=== PATIENT | male | born 1990 | race African-American/Black ===

== ENCOUNTER 2020-04-20 19:01 | Emergency (ER) | payer MEDICAID ==
[~2020-04-20] VITALS: Ht 185.4 cm; Wt 107.0 kg
[2020-04-20] MEDS ORDERED: BACITRACIN ZINC OINT UDPKT TOP ONE (20:15)
[2020-04-20] MEDS ORDERED: LIDOCAINE HCL/PF 1% 10 MG/ML 5ML VIAL IJ ONE (20:15)
[2020-04-20] MEDS ORDERED: IBUPROFEN 600MG TABLET PO ONE (20:15)
[2020-04-20 21:25] VITALS: BP 124/64
== END 2020-04-20 21:25 | disposition home or self-care (01) ==
LOC: ER 19:01
DX: S61.215A Laceration without foreign body of left ring finger without damage to nail, initial encounter (principal); F12.10 Cannabis abuse, uncomplicated; W25.XXXA Contact with sharp glass, initial encounter; Y93.89 Activity, other specified; Y92.89 Other specified places as the place of occurrence of the external cause; Y99.8 Other external cause status
CPT/HCPCS: 12001; 99283; J3490

== ENCOUNTER 2020-04-22 13:51 | Emergency (ER) | payer MEDICAID ==
[~2020-04-22] VITALS: Ht 182.9 cm; Wt 100.0 kg
[2020-04-22 14:09] VITALS: BP 123/91
== END 2020-04-22 14:51 | disposition home or self-care (01) ==
LOC: ER 13:51
DX: Z48.00 Encounter for change or removal of nonsurgical wound dressing (principal)
CPT/HCPCS: 99281

== ENCOUNTER 2020-04-26 09:48 | Emergency (ER) | payer MEDICAID ==
[~2020-04-26] VITALS: Ht 185.4 cm; Wt 103.5 kg
[2020-04-26 09:57] VITALS: BP 122/68
== END 2020-04-26 10:23 | disposition home or self-care (01) ==
LOC: ER 09:48
DX: Z48.02 Encounter for removal of sutures (principal); R03.0 Elevated blood-pressure reading, without diagnosis of hypertension
CPT/HCPCS: 99281

== ENCOUNTER 2020-10-01 04:34 | Emergency (ER) | payer MEDICAID, OTHER ==
[~2020-10-01] VITALS: Ht 185.4 cm; Wt 114.0 kg
[2020-10-01 05:03] VITALS: BP 135/70
== END 2020-10-01 06:52 | disposition home or self-care (01) ==
LOC: ER 04:34
DX: L03.113 Cellulitis of right upper limb (principal); F12.10 Cannabis abuse, uncomplicated
CPT/HCPCS: 73090; 99283

== ENCOUNTER 2021-02-18 05:13 | Emergency (ER) | payer OTHER ==
[~2021-02-18] VITALS: Ht 185.4 cm; Wt 114.0 kg
[2021-02-18 06:10] VITALS: BP 125/72
[2021-02-18] MEDS ORDERED: CEFTRIAXONE SODIUM 500 MG/VIAL IM ONE (07:45)
[2021-02-18 08:16] LABS: CLARITY URINE CLEAR (CLEAR); COLOR URINE YELLOW (YELLOW); KETONES URINE NEGATIVE (NEGATIVE); LEUKOCYTE ESTERASE URINE NEGATIVE (NEGATIVE); NITRITE URINE NEGATIVE (NEGATIVE); OCCULT BLOOD URINE NEGATIVE (NEGATIVE); PH URINE 5.5 (4.5-8.0); PROTEIN URINE NEGATIVE (NEGATIVE); UROBILINOGEN URINE 0.2 E.U./dL (0.2-1.0)
[2021-02-20 07:09] LABS: NEISSERIA GONORRHOEAE NAA Negative (Negative)
== END 2021-02-18 10:41 | disposition left against medical advice (07) ==
LOC: ER 05:13
DX: R10.30 Lower abdominal pain, unspecified (principal); A64 Unspecified sexually transmitted disease; F12.10 Cannabis abuse, uncomplicated
CPT/HCPCS: 81003; 87086; 87491; 87591; 96372; 99283; J0696

== ENCOUNTER 2021-08-27 08:22 | Emergency (ER) | payer OTHER ==
[~2021-08-27] VITALS: Ht 185.4 cm; Wt 111.0 kg
[2021-08-27] MEDS ORDERED: MAGNESIUM/ALUMINUM HYDROXIDE/SIMETHICONE 30ML UDC PO STA (08:42)
[2021-08-27] MEDS ORDERED: VISCOUS LIDOCAINE 2% 15 ML UDC PO STA (08:42)
[2021-08-27] MEDS ORDERED: ONDANSETRON 4MG ODT PO STA (08:42)
[2021-08-27] MEDS ORDERED: FAMOTIDINE 20MG TABLET PO ONE (08:45)
[2021-08-27 08:56] LABS: BASOPHILS % 0.3 % (0.0-2.0); EOSINOPHILS % 1.2 % (0.0-5.0); HEMATOCRIT. 43.2 % (42.0-52.0); HEMOGLOBIN. 14.4 g/dL (14.0-18.0); LYMPHOCYTES % 42.7 % (20.0-50.0); MEAN CORPUSCULAR HEMOGLOBIN 28.5 pg (28.0-32.0); MEAN CORPUSCULAR VOLUME 85.4 fL (80.0-94.0); MEAN PLATELET VOLUME 8.1 fl (7.4-10.4); MONOCYTES % 10.6 % (2.0-8.0); NEUTROPHILS % 45.2 % (40.0-76.0); PLATELET 214 x1000/uL (130-400); RED BLOOD CELL COUNT 5.06 mill/uL (4.7-6.1); RED CELL DISTRIBUTION WIDTH 13.2 % (11.6-14.6)
[2021-08-27 09:04] LABS: CHLORIDE 107 mEq/L (98-107)
[2021-08-27 09:06] LABS: PROTHROMBIN TIME 10.7 sec (9.6-11.0)
[2021-08-27 09:30] VITALS: BP 121/71
[2021-08-27] MEDS ORDERED: FAMO-135 MT (10:04)
== END 2021-08-27 10:10 | disposition home or self-care (01) ==
LOC: ER 08:34
DX: K29.70 Gastritis, unspecified, without bleeding (principal); F12.10 Cannabis abuse, uncomplicated
CPT/HCPCS: 36415; 71045; 80053; 83690; 84484; 85025; 85610; 93005; 99285; Q0162